=== PATIENT | male | born 1970 | race American Indian/Alaskan Native ===

== ENCOUNTER 2017-08-25 13:09 | Emergency (ER) | payer BC ==
[2017-08-25 13:19] VITALS: BP 140/91
--- NOTE | 2017-08-25 15:53 | XRay Report ---
FINAL REPORT PROCEDURE: XR KNEE 3V RT TECHNIQUE: Right knee, AP and lateral views HISTORY: Pain, swelling NO INJURY COMPARISON: No prior studies are available for comparison. FINDINGS: There is moderate to large-sized joint effusion present. No acute fracture or dislocation is seen. There is medial and patellofemoral joint osteoarthritis. IMPRESSION: Osteoarthritis and joint effusion
[2017-08-25] MEDS ORDERED: COLCHICINE PO ONE ×2 (16:01→16:32)
[2017-08-25] MEDS ORDERED: DELTASONE PO ONE (16:02)
[2017-08-25] MEDS ORDERED: NORCO 5/325 PO ONE (16:02)
[2017-08-25] MEDS ORDERED: PEPCID PO ONE (16:02)
--- NOTE | 2017-08-25 16:05 | Emergency Department Report ---
ED Extremity Problem HPI - General Chief complaint: Extremity Problem,Nontraumatic Stated complaint: KNEE PAIN Time Seen by Provider: 08/25/17 15:53 Source: patient Mode of arrival: Ambulatory Limitations: No Limitations - History of Present Illness Initial comments: 47-year-old male past medical history none presents with complaint of approximately 2-3 days of persistent right sided knee pain. Patient states he has some swelling around anterior knee joint. Denies any recent falls. Denies any recent direct injury or trauma to her right knee. Patient is ambulatory but states that it is painful to bear weight on right knee. Denies fevers or chills. Is awake alert and oriented 3 and nontoxic appearing. Patient is visibly ranging his right knee although it is uncomfortable for him. Pt denies any calf tenderness whatsoever. MD Complaint: extremity pain Onset/Timin -: days(s) Location: right, knee History of Same: No Severity scale (0 -10): 7 Quality: aching Consistency: constant - Related Data Previous Rx's Medication Instructions Recorded Last Taken Type Colchicine 0.6 mg PO ONCE #1 capsule 08/25/17 Unknown Rx HYDROcodone/ACETAMINOPHEN [[place] 1 each PO Q8H PRN #12 tablet 08/25/17 Unknown Rx 5-325 Tablet] Prednisone [predniSONE 10 mg 10 mg PO .TAPER #1 tab.ds.pk 08/25/17 Unknown Rx (6-Day Pack, 21 Tabs)] Allergies Allergy/AdvReac Type Severity Reaction Status Date / Time No Known Allergies Allergy Unverified 08/25/17 13:18 ED Review of Systems ROS: Stated complaint: KNEE PAIN Other details as noted in HPI Constitutional: denies: chills, fever Eyes: denies: eye pain, eye discharge, vision change ENT: denies: ear pain, throat pain Respiratory: denies: cough, shortness of breath, wheezing Cardiovascular: denies: chest pain, palpitations Endocrine: no symptoms reported Gastrointestinal: denies: abdominal pain, nausea, diarrhea Genitourinary: denies: urgency, dysuria Musculoskeletal: as per HPI, arthralgia. denies: back pain, joint swelling Skin: denies: rash, lesions Neurological: denies: headache, weakness, paresthesias Psychiatric: denies: anxiety, depression Hematological/Lymphatic: denies: easy bleeding, easy bruising ED Past Medical Hx - Past Medical History Previous Medical History?: No - Surgical History Past Surgical History?: No - Social History Smoking Status: Current Every Day Smoker Substance Use Type: None - Medications Home Medications: Home Medications Medication Instructions Recorded Confirmed Last Taken Type Colchicine 0.6 mg PO ONCE #1 capsule 08/25/17 Unknown Rx HYDROcodone/ACETAMINOPHEN [[place] 1 each PO Q8H PRN #12 tablet 08/25/17 Unknown Rx 5-325 Tablet] Prednisone [predniSONE 10 mg 10 mg PO .TAPER #1 tab.ds.pk 08/25/17 Unknown Rx (6-Day Pack, 21 Tabs)] ED Physical Exam - General Limitations: No Limitations General appearance: alert, in no apparent distress - Head Head exam: Present: atraumatic, normocephalic - Eye Eye exam: Present: normal appearance, PERRL, EOMI - ENT ENT exam: Present: mucous membranes moist - Neck Neck exam: Present: normal inspection - Respiratory Respiratory exam: Present: normal lung sounds bilaterally. Absent: respiratory distress - Cardiovascular Cardiovascular Exam: Present: regular rate, normal rhythm. Absent: systolic murmur, diastolic murmur, rubs, gallop - GI/Abdominal GI/Abdominal exam: Present: soft, normal bowel sounds - Rectal Rectal exam: Present: deferred - Extremities Exam Extremities exam: Present: normal inspection - Expanded Lower Extremity Exam Right Upper Leg exam: Present: normal inspection, full ROM Knee exam: Present: full ROM (injury of motion right knee preserved flexion and extension is intact on physical exam), swelling (some swelling visible overlying right anterior knee joint), full knee extension Lower Leg exam: Present: normal inspection, full ROM Gait: Positive: antalgic 1 - Some swelling overlying this region here - Back Exam Back exam: Present: normal inspection - Neurological Exam Neurological exam: Present: alert, oriented X3 - Psychiatric Psychiatric exam: Present: normal affect, normal mood - Skin Skin exam: Present: warm, dry, intact, normal color. Absent: rash ED Course Vital Signs 08/25/17 08/25/17 13:15 16:47 Temperature 99.2 F 97.6 F Pulse Rate 104 H 66 Respiratory 16 16 Rate Blood Pressure 140/91 O2 Sat by Pulse 98 98 Oximetry ED Medical Decision Making - Medical Decision Making A/P: Osteoarthritis right knee, possible gout flare 1-I discussed case with Dr. Kennedy who also examined patient 2-patient given empiric dosing for colchicine 3-short course of narcotics and prednisone 4-H and advised to follow-up with primary care and orthopedics. Patient's range of motion is preserved and right knee and there are no clinical signs of septic joint at this time. Critical care attestation.: If time is entered above; I have spent that time in minutes in the direct care of this critically ill patient, excluding procedure time. ED Disposition Clinical Impression: Right knee pain Qualifiers: Chronicity: acute Qualified Code(s): M25.561 - Pain in right knee Gout Qualifiers: Gout site: knee Encounter type: initial encounter Disposition: TO HOME OR SELFCARE Is pt being admited?: No Does the pt Need Aspirin: No Condition: Stable Instructions: Osteoarthritis (ED), Acute Gouty Arthritis (ED), Knee Effusion ( ED), Knee Pain (ED) Prescriptions: Colchicine 0.6 mg PO ONCE #1 capsule HYDROcodone/ACETAMINOPHEN [[place] 5-325 Tablet] 1 each PO Q8H PRN #12 tablet PRN Reason: Pain , Severe (7-10) Prednisone [predniSONE 10 mg (6-Day Pack, 21 Tabs)] 10 mg PO .TAPER #1 tab.ds.pk Referrals: [facility] [Provider Group] - 3-5 Days TERRELL MONTES MD [Staff Physician] - 3-5 Days Forms: Accompanied Note, Work/School Release Form(ED) Time of Disposition: 16:30
== END 2017-08-25 16:47 | disposition home or self-care (01) ==
LOC: ED 13:09
DX: M10.9 Gout, unspecified (principal); M25.561 Pain in right knee; F17.200 Nicotine dependence, unspecified, uncomplicated
CPT/HCPCS: 73562; 99283; J7512